=== PATIENT | male | born 1945 | race Caucasian/White ===

== ENCOUNTER 2020-06-02 07:57 | Outpatient (REF) | payer MEDICARE, SELFPAY | END 2020-06-02 07:58 | disposition home or self-care (01) | LOC: HO.LAB 07:57 | PROVIDERS: Visit Provider Internal Medicine | DX: Z20.828 Contact with and (suspected) exposure to other viral communicable diseases (principal) | CPT/HCPCS: C9803; U0003 ==

== ENCOUNTER 2020-06-20 08:38 | Outpatient (REF) | payer MEDICARE, SELFPAY | END 2020-06-20 08:39 | disposition home or self-care (01) | LOC: HO.LAB 08:38 | PROVIDERS: Visit Provider Internal Medicine | DX: Z20.828 Contact with and (suspected) exposure to other viral communicable diseases (principal) | CPT/HCPCS: C9803; U0003 ==

== ENCOUNTER 2020-09-25 08:25 | Outpatient (REF) | payer MEDICARE, SELFPAY | END 2020-09-25 08:26 | disposition home or self-care (01) | LOC: HO.LAB 08:25 | PROVIDERS: Visit Provider Internal Medicine | DX: Z20.822 Contact with and (suspected) exposure to COVID-19 (principal) | CPT/HCPCS: 36415; C9803; U0003; U0005 ==

== ENCOUNTER 2021-06-20 08:26 | Outpatient (REF) | payer MEDICARE, SELFPAY | END 2021-06-20 08:27 | disposition home or self-care (01) | LOC: HO.LAB 08:26 | PROVIDERS: Visit Provider Internal Medicine | DX: Z20.822 Contact with and (suspected) exposure to COVID-19 (principal) | CPT/HCPCS: C9803; U0003; U0005 ==

== ENCOUNTER 2024-08-18 08:16 | Outpatient (REF) | payer MEDICARE, SELFPAY ==
[2024-08-18 12:08] LABS: Alanine Aminotransferase 12 U/L (0-40); Albumin Level 4.1 g/dL (3.5-5.0); Alkaline Phosphatase 63 U/L (39-117); Anion Gap 10 (12-20); Aspartate Amino Transferase 26 U/L (5-37); Bilirubin Total 0.9 mg/dL (0.0-1.0); Blood Urea Nitrogen 15 mg/dL (9-16); Calcium 9.5 mg/dL (8.4-10.2); Carbon Dioxide 26 mmol/L (22-29); Chloride 105 mmol/L (96-108); Cholesterol 183 mg/dL (<200); Estimated Glomerular Filt Rate 59; Glucose Random 94 mg/dL (60-115); HDL Cholesterol 52 mg/dL (>40); LDL Cholesterol Calculated 113 mg/dL (<100); Potassium 3.3 mmol/L (3.3-5.1); Sodium 138 mmol/L (135-145); Total Protein 7.8 g/dL (6.5-8.0); Triglycerides 93 mg/dL (<150)
[2024-08-18 12:45] LABS: Creatinine Urine 101.33 mg/dL; Microalbum/Creatinine Ratio Ur 88.8 ug/mg cr (<30)
== END 2024-08-18 08:17 | disposition home or self-care (01) ==
LOC: HO.HHCL 08:16
PROVIDERS: Visit Provider Nurse Practitioner
DX: I10 Essential (primary) hypertension (principal)
CPT/HCPCS: 36415; 80053; 80061; 82043; 82570

== ENCOUNTER 2025-02-14 10:04 | Emergency (ER) | payer MEDICARE, SELFPAY ==
[2025-02-14 10:34] VITALS: BP 156/91; PULSE 57; RESP 16; TEMP 36.1; O2SAT 99; BMI 21.8
[2025-02-14 10:49] LABS: MANUAL DIFF FLAG NO
[2025-02-14 10:51] LABS: Hematocrit 37.0 % (42.0-52.0); Hemoglobin 12.2 g/dl (14.0-18.0); Imm Gran Abs Auto 0.02 X10*3/uL (0.00-0.03); Imm Gran Pct Auto 0.3 % (0.0-0.4); Lymphocytes Absolute Auto 1.5 X10*3/uL (1.2-4.9); Mean Corpuscular HGB Conc 33.0 g/dl (31.0-36.0); Mean Corpuscular Hemoglobin 29.8 pg (27.0-33.0); Mean Corpuscular Volume 90.2 fL (80.0-98.0); NRBC Abs Auto 0.000 X10*3/uL (0.0-0.012); NRBC Pct Auto 0.0 /100WBC (0.0-0.2); Platelet Count 265 X10*3/uL (160-400); Red Blood Count 4.10 X10*6/uL (4.60-5.80); White Blood Count 8.0 X10*3/uL (4.8-10.8)
[2025-02-14 11:06] LABS: Anion Gap 9 (12-20); Blood Urea Nitrogen 15 mg/dL (9-16); Calcium 9.2 mg/dL (8.4-10.2); Carbon Dioxide 29 mmol/L (22-29); Chloride 107 mmol/L (96-108); Creatinine Clr Calc Pharmacy 39.7; Estimated Glomerular Filt Rate 56; Potassium 4.0 mmol/L (3.3-5.1); Sodium 141 mmol/L (135-145)
--- NOTE | 2025-02-14 13:55 | ED.ABDPAIN ---
HPI - Abdominal Pain General Chief Complaint: Abdominal Pain Stated Complaint: l side pain Time Seen by Provider: 02/14/25 13:47 Source: patient Mode of arrival: ambulatory Limitations: no limitations History of Present Illness ED Provider: HPI narrative: 80-year-old male, who is very active, works full-time at a farm, presenting with new onset of bulging in the right inguinal area, he does quite a bit of heavy lifting at work, has had no fevers or chills hematuria no constipation, obstipation, testicular pain. Related Data Allergies Allergy/AdvReac Type Severity Reaction Status Date / Time No Known Allergies Allergy Verified 02/14/25 10:36 Review of Systems Constitutional: Reports as per HPI Physical Exam ED Vital Signs: Vital Signs - 24 hr 02/14/25 10:34 Temperature 97 F Pulse Rate 57 Respiratory Rate 16 Blood Pressure 156/91 H Pulse Oximetry 99 Oxygen Delivery Method Room Air BMI result Body Mass Index 21.8 Const Other: Gen: ?Overall well-appearing patient CV: RRR, no obvious murmurs appreciated Resp: ?No wheezing rales rhonchi no stridor moving air well Abd: ?Bowel sounds are present, right inguinal hernia, it was easily reduced at bedside MSK: FROM, strength 5/5 all extremities Skin: Warm, dry, intact, Neuro: ?Alert and oriented x3, moving upper and lower extremities symmetrically, no obvious facial asymmetry noted Medical Decision Making Medical Decision Making [facility] Narrative: See my differential as below, patient presented with a rectal inguinal hernia on the right side, it is reducible, I contacted general surgeon just to make sure patient is able to be seen on outpatient basis, otherwise see my discharge instructions Differential Diagnosis Differential Diagnoses: The differential diagnosis associated with the presentation includes (Incarcerated hernia, strangulated hernia, testicular torsion, SBO) Consult Healthcare Provider Management of the patient was discussed with: Demolition Hammer Operator (DR. Palomares from gen. surgery) Lab Data [facility] Lab Attestation statement: I reviewed the patient's lab results. 02/14/25 10:44 02/14/25 10:44 Labs: Lab Results 02/14/25 Range/Units 10:44 WBC 8.0 (4.8-10.8) X10*3/uL RBC 4.10 L (4.60-5.80) X10*6/uL Hgb 12.2 L (14.0-18.0) g/dl Hct 37.0 L (42.0-52.0) % MCV 90.2 (80.0-98.0) fL MCH 29.8 (27.0-33.0) pg MCHC 33.0 (31.0-36.0) g/dl RDW 12.6 (11.0-16.0) % Plt Count 265 (160-400) X10*3/uL MPV 10.6 (9.4-12.4) fL Immature Gran % (Auto) 0.3 (0.0-0.4) % Neut % (Auto) 71.4 (45-73) % Lymph % (Auto) 18.5 L (20-40) % [place] % (Auto) 8.6 (2-11) % Eos % (Auto) 0.6 (0-4) % Baso % (Auto) 0.6 (0-2) % Lymph # (Auto) 1.5 (1.2-4.9) X10*3/uL [place] # (Auto) 0.7 (0.1-1.2) X10*3/uL Eos # (Auto) 0.1 (0.0-0.4) X10*3/uL Baso # (Auto) 0.1 (0.0-0.2) X10*3/uL Abs Immat Gran (auto) 0.02 (0.00-0.03) X10*3/uL Absolute Neuts (auto) 5.7 (2.0-8.3) x10*3/uL Absolute Nucleated RBC 0.000 (0.0-0.012) X10*3/uL Nucleated RBC % (auto) 0.0 (0.0-0.2) /100WBC Sodium 141 (135-145) mmol/L Potassium 4.0 D (3.3-5.1) mmol/L Chloride 107 (96-108) mmol/L Carbon Dioxide 29 (22-29) mmol/L Anion Gap 9 L (12-20) BUN 15 (9-16) mg/dL Creatinine 1.24 (0.5-1.4) mg/dL Estim Creat Clear Calc 39.7 Estimated GFR 56 Random Glucose 100 (60-115) mg/dL Calcium 9.2 (8.4-10.2) mg/dL Tests considered The following testing was considered but not selected: CT abdomen and pelvis with oral contrast to evaluate for SBO Prescription Management I considered prescription management with: Pain Medication Discharge Plan Discharge Clinical Impression: Direct inguinal hernia of right side Patient Disposition: Home, Self-Care Instructions: Inguinal Hernia (ED) Additional Instructions: You have evidence of inguinal hernia on the right side, it is easy or reducible, as discussed you will likely require elective surgery for this, if area comes out and your unable to easily reduce it come back to the ER, this really no other treatment for this at this time, to reduce the hernia or a down, put her hands on a lump and gently push the hernia in, it will likely come out and stay out for quite prolonged times and if it is not bothering you there was not much to do about diet, otherwise you can take Tylenol for pain and ice the area, but otherwise I recommend against heavy lifting until you get it fixed I am providing you with a number to call Dr. Horn general surgeon to establish follow up Referrals: Primo Horn MD [Physician, General Surgery] - 2 weeks Clinical Impression: Direct inguinal hernia of right side Print Language: Indonesian
[2025-02-14 14:00] VITALS: BP 183/78; PULSE 56; RESP 18; O2SAT 98
[2025-02-14 14:16] VITALS: BP 183/78; PULSE 56; RESP 18; TEMP 36.6; O2SAT 98
--- OUTSIDE RECORDS SUMMARY | 2025-02-14 14:56 | XMS_ITS | Encounter Summary ---
Author Organization [employer] Address [address] [place] [address] Care Team Providers Care City Council Member Name Role Phone AngusKathleen METAL FENCE ERECTOR Primary Care Provider [phone] Kaitlin An NP Primary Care Provider [phone] Encounter Details Date Type Department Care Team (Late st Contact Info) Description 11/12/2022 Orders Only [facility] [address] [place] [address] Serene Lehman LPN Social History Tobacco Use Types Packs/Day Years Used Date Smoking Tobacco: Never Assessed Sex and Gender Information Value Date Recorded Sex Assigned at Male 05/20/2022 10:19 AM EDT Legal Sex Male 10:19 AM EDT Gender Identity Male 05/20/2022 10:19 AM EDT Sexual Orientation Straight 05/20/2022 10 :19 AM EDT documented as of this encounter Plan of Treatment Upcoming Encounters Date Type Department Care Team (Late st Contact Info) Description 03/18/2025 10:30 AM EDT Office Visit [facility] [address] [place] [address] TarSilvina walker, OD [address] [place] [address] documented as of this encounter Visit Diagnoses Not on filedocumented in this encounter Care Teams City Council Member Relationship Specialty Start Date End Date Kathleen Greco FNP [address] [place] [address] PCP - General Family Medicine 03/14/22 08/26/23 Kaitlin An NP [address] [place] [address] PCP - General Family Medicine 08/27/23 documented as of this encounter
== END 2025-02-14 14:16 | disposition home or self-care (01) ==
LOC: HO.ED 14:12
PROVIDERS: Emergency Provider Emergency Medicine
DX: K40.90 Unilateral inguinal hernia, without obstruction or gangrene, not specified as recurrent (principal); I10 Essential (primary) hypertension; E78.5 Hyperlipidemia, unspecified
CPT/HCPCS: 36415; 80048; 85025; 99283; 99284

== ENCOUNTER 2025-02-18 15:29 | Outpatient (AMB) | payer MEDICARE, SELFPAY ==
--- OUTSIDE RECORDS SUMMARY | 2025-02-18 15:31 | XMS_ITS | Encounter Summary ---
Author Organization [employer] Address [address] [place] [address] Care Team Providers Care Wrapper Layer Name Role Phone AngusKathleen DUCK OPERATOR Primary Care Provider [phone] Kaitlin An NP Primary Care Provider [phone] Encounter Details Date Type Department Care Team (Late st Contact Info) Description 11/12/2022 Orders Only [facility] [address] [place] [address] Serene Lehman LPN Social History Tobacco Use [...] Description 03/18/2025 10:30 AM EDT Office Visit [facility] [address] [place] [address] TarSilvina walker, OD [address] [place] [address] documented as of this encounter Visit Diagnoses Not on filedocumented in this encounter Care Teams Wrapper Layer Relationship Specialty Start Date End Date Kathleen Greco FNP [address] [place] [address] PCP - General Family Medicine 03/14/22 08/26/23 Kaitlin An NP [address] [place] [address] PCP - General Family Medicine 08/27/23 documented as of this encounter
--- NOTE | 2025-02-18 15:33 | MHC.PC.OV ---
Vital Signs 02/18/25 15:41 02/18/25 16:35 Height 5 ft 4.57 in Weight 136 lb BMI 22.9 BP 184/82 H 159/72 H Blood Pressure Location Lt brachial Rt brachial Position Sitting Respiration 14 Pulse 54 Pulse Source Pulse Oximeter Temp 98.2 F Temp Source Temporal Artery Scan Pulse Oximetry (%) 98 Oxygen Delivery Method Room Air Intake Visit Reasons: Establish Care Court Assistant Required: No Accompanied by: Self / Same As Patient Allergies No Known Allergies Allergy (Verified 02/18/25 16:36) Medication List - Last Reconciled 02/18/25 by Rashmi Unger PA-C lisinopril 20 mg PO DAILY Tobacco use date assessed: 02/18/25 Fall risk assessment: No Falls in past year Last assessed Fall Risk: 02/18/25 Dental Screening Dental Screen Date: 02/18/25 Did you have a dental visit in the last 12 months?: No Did you have a dental problem in the last 6 months where you did not have access to dental care?: No HPI Establish Care HPI Details The patient is an 80-year-old male presenting for a new patient appointment with right inguinal hernia pain. The hemorrhoid began approximately one week ago and is associated with pain, particularly when lifting heavy objects. The patient has not had a primary care physician and was referred to the current provider after visiting the emergency room for inguinal pain. The inguinal pain was noted on February 14, coinciding with lifting heavy items, and led to an emergency room visit. During this visit, blood tests indicated mild anemia, normal kidney function, and elevated LDL cholesterol at 113 mg/dL. The patient reports a history of elevated blood pressure, which tends to rise during hospital visits. He has not seen a doctor for approximately three years and denies chest pain or leg swelling. Social History - Family status: Has seven children [facility] Medical History (Updated 02/18/25 @ 16:41 by Rashmi Unger PA-C) Hyperlipidemia LDL goal <100 Hypertension Right inguinal hernia Family History Father No problems noted. Mother No problems noted. Social History Housing: Apartment Alcohol intake: current Alcohol intake frequency: does not drink Patient Tobacco Use Status: Never used Tobacco service: No Current occupational status: retired Cognitive needs: No Hearing needs: No Vision needs: Yes (reading glasses) Questionnaire PHQ-9 Over the last 2 weeks, how often have you been bothered by any of the following problems? 1. Little interest or pleasure in doing things: not at all 2. Feeling down, depressed, or hopeless: not at all 3. Trouble falling or staying asleep, or sleeping too much: not at all 4. Feeling tired or having little energy: not at all 5. Poor appetite or overeating: not at all 6. Feeling bad about yourself - or that you are a failure or have let yourself or your family down: not at all 7. Trouble concentrating on things, such as reading the newspaper or watching television: not at all 8. Moving or speaking so slowly that other people could have noticed. Or the opposite - being so fidgety or restless that you have been moving around a lot more than usual: not at all 9. Thoughts that you would be better off or of hurting yourself in some way: not at all Total score: 0 Depression Screening Interpretation: Negative Depression Screening Done: Yes 33262 - PHQ-9 Billing: Yes Source: Developed by Drs. Wilfrid Mullen, Karen Ugalde, Brian Blue and colleagues, with an educational cathleen from [employer]. Thrive Questionnaire Date Thrive assessed: 02/18/25 I am a: Patient What is your living situation today?: I have a steady place to live Within the past 12 months, did the food you bought not last and you didn't have the money to get more?: Never true Within the past 12 months, did you worry whether your food would run out before you got money to buy more?: Never true Do you have trouble paying for medicines?: No Do you have trouble getting transportation to medical appointments?: No Do you have trouble paying your heating and electricity bill?: No Do you have trouble taking care of your child, family member or friend?: No Do you have trouble with day-to-day activities such as bathing, preparing meals, shopping, managing finances, etc.?: No Are you currently unemployed and looking for a job?: No Are you interested in more education?: No Please select the resources that you would like help with: None THRIVE Score: 0 AUDIT C Alcohol Use Questionnaire (AUDIT-C) 1. How often do you have a drink containing alcohol?: Never 3. How often do you have six or more drinks on one occasion?: Never Total Score: 0 Score Reviewed/Action Taken: No DARIELA-7 AMB Questionnaire DARIELA-7 Date DARIELA - 7 assessed: 02/18/25 Feeling nervous, anxious, or on edge: 0 = Not at all Not being able to stop or control worryin = Not at all Worrying too much about different things: 0 = Not at all Trouble relaxin = Not at all Being so restless that it is hard to sit still: 0 = Not at all Becoming easily annoyed or irritable: 0 = Not at all Feeling afraid as if something awful might happen: 0 = Not at all Total DARIELA-7 score (0-4 normal; 5-9 mild; 10-14 moderate; 15-21 severe): 0 Source: Developed by Drs. Wilfrid Mullen, Karen Ugalde, Brian Blue and colleagues, with an educational cathleen from [employer]. DARIELA-7 Assessment Billing DARIELA-7 Assessment Tool: DARIELA-7 Assessment 23635 Review of Systems Const Details: - Cardiovascular: Denies chest pain, denies leg swelling - Gastrointestinal: Reports hemorrhoid with pain All systems reviewed & are unremarkable except as noted in HPI and below Physical exam (Primary Care) Vital Signs: Last Vital Signs Temp 98.2 F 02/18/25 15:41 Pulse 54 02/18/25 15:41 Resp 14 02/18/25 15:41 BP 184/82 H 02/18/25 15:41 Pulse Ox 98 02/18/25 15:41 Oxygen Delivery Method Room Air 02/18/25 15:41 Care Plan Goal for BP management: <140/90 patient to continue lisinopril 20 mg daily and keep a blood pressure diary return in 1 month with blood pressure diary and blood pressure cuff for re-evaluation BMI result Body Mass Index 22.9 Normal BMI Tobacco/Smoking Status: Tobacco use Status Tobacco use date assessed 02/18/25 02/18/25 15:38 Patient Tobacco Use Status Never used Tobacco 02/18/25 15:49 PHQ-9: PHQ-9 Score PHQ-9: Total score 0 02/18/25 15:49 Depression Screening Interpretation: Negative Thrive Assessment: Date of Thrive Assessment Date Thrive assessed 02/18/25 02/18/25 15:38 Const Other: Appearance: Alert. Oriented X3. No acute distress. Head: Normal external exam. Normocephalic. Atraumatic. Eyes: Pupils are equal, round, and reactive to light. Extraocular movements intact. Conjunctiva and sclera normal. Eyelids normal. Throat: Pharynx normal. Uvula midline. Moist mucous membranes. Neck: Normal inspection. Neck supple. Full range of motion. Cardiovascular: Normal heart rate and rhythm. Heart sound normal. No murmurs noted. Pulses normal throughout. Respiratory: No respiratory distress. Painless inspiration. Breath sounds normal. No wheezes/rales/rhonchi noted. Chest nontender. No accessory muscle usage noted or decreased air movement noted. Abdomen: Soft and nontender. No distention noted. No organomegaly noted. Large right inguinal hernia noted/bulge. Easily reducible. Not consistent with incarcerated hernia. Back: Full range of motion noted. Skin: Skin warm and dry. Normal skin color. Normal skin turgor. No rashes/lesions/lacerations noted. Extremities: Extremities exhibit normal range of motion. Neuro: Oriented X 3. No motor deficit. No sensory deficit. Reflexes normal. Results Reviewed Results Reviewed: - Labs: Mild anemia, normal kidney function, elevated LDL cholesterol at 113 mg/dL Coding Level of Care Code New Pt Level 4 (65355) Complex EM visit Add On G2211 Diagnoses Hypertension I10 Right inguinal hernia K40.90 Hyperlipidemia LDL goal <100 E78.5 Additional Codes PHQ-9 - 31323 - PHQ-9 Billing: Yes ([id number]) DARIELA-7 Assessment Billing - DARIELA-7 Assessment Tool: DARIELA-7 Assessment 16065 ([id number]) Assessment & Plan Assessment & Plan (1) Hypertension: Code(s): I10 - Essential (primary) hypertension Category: Medical Plan: The patient's blood pressure will be monitored, and lifestyle modifications were discussed. (2) Right inguinal hernia: Code(s): K40.90 - Unilateral inguinal hernia, without obstruction or gangrene, not specified as recurrent Category: Medical Plan: The inguinal pain is suspected to be related to lifting heavy objects. Further evaluation by a surgeon is planned. Referral to general surgeon place. Abdominal binder recommended to patient to buy. (3) Hyperlipidemia LDL goal <100: Code(s): E78.5 - Hyperlipidemia, unspecified Category: Medical Plan: Patient was offered cholesterol-lowering medication although patient declined he will improve his diet and exercise regimen and we will reassess in 6-12 months. Plan Plan Patient was informed and verbally consented to the use of an ambient scribe for clinic note documentation during this visit. 1. Inguinal Pain The inguinal pain is suspected to be related to lifting heavy objects. Further evaluation by a surgeon is planned. 2. Elevated Blood Pressure The patient's blood pressure will be monitored, and lifestyle modifications were discussed. 3. Elevated Ldl Cholesterol The patient will undergo further blood tests to monitor cholesterol levels and assess for other conditions such as prostate cancer, thyroid function, vitamin D, and vitamin B12 levels. I discussed with the patient the need for surgical evaluation for the inguinal hernia and the potential benefits of using an abdominal binder to alleviate symptoms. We also talked about the importance of monitoring blood pressure and cholesterol levels, and I recommended further blood tests to check for prostate cancer, thyroid function, vitamin D, and vitamin B12 levels. Orders: Orders Magnesium Today Z00.00 - Encounter for general adult medical examination without abnormal findings Vitamin B12 and Folate Today Z00.00 - Encounter for general adult medical examination without abnormal findings Hemoglobin A1c Today Z00.00 - Encounter for general adult medical examination without abnormal findings PSA,Total (Free>4and<10) Today Z00.00 - Encounter for general adult medical examination without abnormal findings TSH reflex Free T4 Today Z00.00 - Encounter for general adult medical examination without abnormal findings Vitamin D 25-OH Total Today Z00.00 - Encounter for general adult medical examination without abnormal findings Referrals Gastroenterology Referral K40.90 - Unilateral inguinal hernia, without obstruction or gangrene, not specified as recurrent Patient Instructions: - Follow up with the surgeon as scheduled for right inguinal hernia evaluation. - Consider purchasing an abdominal binder to help manage symptoms. - Monitor blood pressure regularly and report any significant changes. - Complete the recommended blood tests for cholesterol, prostate cancer, thyroid function, vitamin D, and vitamin B12 levels.
[2025-02-18 15:41] VITALS: BP 184/82; PULSE 54; RESP 14; TEMP 36.8; O2SAT 98; BMI 22.9
[2025-02-18 16:35] VITALS: BP 159/72
== END 2025-02-18 16:09 | disposition home or self-care (01) ==
LOC: HO.HMCSH 15:29
PROVIDERS: PCP Physician Assistant Medical; Visit Provider Physician Assistant Medical
DX: I10 Essential (primary) hypertension (principal); K40.90 Unilateral inguinal hernia, without obstruction or gangrene, not specified as recurrent; E78.5 Hyperlipidemia, unspecified

== ENCOUNTER → 2025-02-18 15:29 | Outpatient (BNVA) | payer MEDICARE, SELFPAY | PROVIDERS: PCP Physician Assistant Medical; Visit Provider Physician Assistant Medical | DX: I10 Essential (primary) hypertension (principal); K40.90 Unilateral inguinal hernia, without obstruction or gangrene, not specified as recurrent; E78.5 Hyperlipidemia, unspecified | CPT/HCPCS: 96127; 99202 ==

== ENCOUNTER 2025-03-25 11:50 | Outpatient (AMB) | payer MEDICARE, SELFPAY ==
--- NOTE | 2025-03-25 11:51 | MHC.PC.OV ---
Vital Signs 03/25/25 11:53 03/25/25 13:06 Height 5 ft 4.57 in Weight 137 lb BMI 23.1 BP 154/80 H 150/71 H Blood Pressure Location Lt brachial Position Sitting Respiration 14 Pulse 72 Pulse Source Pulse Oximeter Temp 98.1 F Temp Source Temporal Artery Scan Pulse Oximetry (%) 99 Oxygen Delivery Method Room Air Intake Visit Reasons: 1 month f/u Manager Emergency Department Required: No Accompanied by: Daughter Allergies No Known Allergies Allergy (Verified 03/25/25 13:06) Medication List - Last Reconciled 03/25/25 by Rashmi Unger PA-C lisinopril 40 mg PO DAILY Tobacco use date assessed: 03/25/25 Dental Screening Dental Screen Date: 02/18/25 HPI 1 month f/u HPI Details The patient is an 80-year-old male presenting for a blood pressure recheck and evaluation of a right inguinal hernia. The patient has a history of essential hypertension, currently managed with lisinopril 20 mg daily. His blood pressure has been elevated, with a current reading of 150/70 mmHg, prompting consideration of increasing the lisinopril dosage to 40 mg. The patient also has a right inguinal hernia, which is significant enough to warrant surgical evaluation. He is scheduled for a gastroenterology appointment in May, but due to the urgency, a referral to general surgery is being expedited. Social History - Employment: The patient is still working, involved in tobacco farming [facility] Medical History Hyperlipidemia LDL goal <100 Hypertension Right inguinal hernia Family History Father No problems noted. Mother No problems noted. Social History Housing: Apartment Alcohol intake: current Alcohol intake frequency: does not drink Patient Tobacco Use Status: Never used Tobacco service: No Current occupational status: retired Cognitive needs: No Hearing needs: No Vision needs: Yes (reading glasses) Questionnaire PHQ-9 Over the last 2 weeks, how often have you been bothered by any of the following problems? 1. Little interest or pleasure in doing things: not at all 2. Feeling down, depressed, or hopeless: not at all 3. Trouble falling or staying asleep, or sleeping too much: not at all 4. Feeling tired or having little energy: not at all 5. Poor appetite or overeating: not at all 6. Feeling bad about yourself - or that you are a failure or have let yourself or your family down: not at all 7. Trouble concentrating on things, such as reading the newspaper or watching television: not at all 8. Moving or speaking so slowly that other people could have noticed. Or the opposite - being so fidgety or restless that you have been moving around a lot more than usual: not at all 9. Thoughts that you would be better off or of hurting yourself in some way: not at all Total score: 0 Depression Screening Interpretation: Negative Depression Screening Done: Yes 49508 - PHQ-9 Billing: Yes Source: Developed by Drs. Wilfrid Mullen, Karen Ugalde, Brian Blue and colleagues, with an educational cathleen from [employer]. Thrive Questionnaire Date Thrive assessed: 02/18/25 I am a: Patient What is your living situation today?: I have a steady place to live Within the past 12 months, did the food you bought not last and you didn't have the money to get more?: Never true Within the past 12 months, did you worry whether your food would run out before you got money to buy more?: Never true Do you have trouble paying for medicines?: No Do you have trouble getting transportation to medical appointments?: No Do you have trouble paying your heating and electricity bill?: No Do you have trouble taking care of your child, family member or friend?: No Do you have trouble with day-to-day activities such as bathing, preparing meals, shopping, managing finances, etc.?: No Are you currently unemployed and looking for a job?: No Are you interested in more education?: No Please select the resources that you would like help with: None THRIVE Score: 0 AUDIT C Alcohol Use Questionnaire (AUDIT-C) 1. How often do you have a drink containing alcohol?: Never 3. How often do you have six or more drinks on one occasion?: Never Total Score: 0 Score Reviewed/Action Taken: No DARIELA-7 AMB Questionnaire DARIELA-7 Date DARIELA - 7 assessed: 02/18/25 Feeling nervous, anxious, or on edge: 0 = Not at all Not being able to stop or control worryin = Not at all Worrying too much about different things: 0 = Not at all Trouble relaxin = Not at all Being so restless that it is hard to sit still: 0 = Not at all Becoming easily annoyed or irritable: 0 = Not at all Feeling afraid as if something awful might happen: 0 = Not at all Total DARIELA-7 score (0-4 normal; 5-9 mild; 10-14 moderate; 15-21 severe): 0 Source: Developed by Drs. Wilfrid Mullen, Karen Ugalde, Brian Blue and colleagues, with an educational cathleen from [employer]. DARIELA-7 Assessment Billing DARIELA-7 Assessment Tool: DARIELA-7 Assessment 13783 Review of Systems Const Details: - Cardiovascular: Reports elevated blood pressure. Denies cough associated with lisinopril use. All systems reviewed & are unremarkable except as noted in HPI and below Physical exam (Primary Care) Vital Signs: Last Vital Signs Temp 98.1 F 03/25/25 11:53 Pulse 72 03/25/25 11:53 Resp 14 03/25/25 11:53 BP 154/80 H 03/25/25 11:53 Pulse Ox 99 03/25/25 11:53 Oxygen Delivery Method Room Air 03/25/25 11:53 Care Plan Goal for BP management: <140/90 lisinopril 20 mg will be increased to 40 mg patient will return in 1 month BMI result Body Mass Index 23.1 Normal BMI Tobacco/Smoking Status: Tobacco use Status Tobacco use date assessed 03/25/25 03/25/25 11:56 Patient Tobacco Use Status Never used Tobacco 03/25/25 11:56 PHQ-9: PHQ-9 Score PHQ-9: Total score 0 03/25/25 11:56 Depression Screening Interpretation: Negative Thrive Assessment: Date of Thrive Assessment Date Thrive assessed 02/18/25 03/25/25 11:56 Const Other: Appearance: Alert. Oriented X3. No acute distress. Head: Normal external exam. Normocephalic. Atraumatic. Eyes: Pupils are equal, round, and reactive to light. Extraocular movements intact. Conjunctiva and sclera normal. Eyelids normal. Throat: Pharynx normal. Uvula midline. Moist mucous membranes. Neck: Normal inspection. Neck supple. Full range of motion. Cardiovascular: Blood pressure is 150/70. Normal heart rate and rhythm. Heart sound normal. No murmurs noted. Pulses normal throughout. Respiratory: No respiratory distress. Painless inspiration. Breath sounds normal. No wheezes/rales/rhonchi noted. Chest nontender. No accessory muscle usage noted or decreased air movement noted. Back: Full range of motion noted. Skin: Skin warm and dry. Normal skin color. Normal skin turgor. No rashes/lesions/lacerations noted. Extremities: No lower extremity edema. Extremities exhibit normal range of motion. Neuro: Oriented X 3. No motor deficit. No sensory deficit. Reflexes normal. Coding Level of Care Code Est Pt Level 4 (40897) Complex EM visit Add On G2211 Diagnoses Hypertension I10 Right inguinal hernia K40.90 Additional Codes DARIELA-7 Assessment Billing - DARIELA-7 Assessment Tool: DARIELA-7 Assessment 73492 ([id number]) PHQ-9 - 99966 - PHQ-9 Billing: Yes ([id number]) Assessment & Plan Assessment & Plan (1) Hypertension: Code(s): I10 - Essential (primary) hypertension Category: Medical Plan: The patient's blood pressure remains elevated at 150/70 mmHg despite current management with lisinopril 20 mg daily. The plan is to increase the lisinopril dosage to 40 mg daily and reassess in one month. (2) Right inguinal hernia: Code(s): K40.90 - Unilateral inguinal hernia, without obstruction or gangrene, not specified as recurrent Category: Medical Plan: The patient has a significant right inguinal hernia requiring surgical evaluation. A referral to general surgery is being expedited to address the hernia promptly, bypassing the longer wait for a gastroenterology appointment. Plan Plan Patient was informed and verbally consented to the use of an ambient scribe for clinic note documentation during this visit. 1. Essential Hypertension The patient's blood pressure remains elevated at 150/70 mmHg despite current management with lisinopril 20 mg daily. The plan is to increase the lisinopril dosage to 40 mg daily and reassess in one month. 2. Right Inguinal Hernia The patient has a significant right inguinal hernia requiring surgical evaluation. A referral to general surgery is being expedited to address the hernia promptly, bypassing the longer wait for a gastroenterology appointment. During the visit, we discussed the patient's elevated blood pressure and the need to increase lisinopril to 40 mg daily. We also addressed the right inguinal hernia, deciding to expedite a referral to general surgery for evaluation and potential intervention. Orders: Referrals General Surgery Referral K40.90 - Unilateral inguinal hernia, without obstruction or gangrene, not specified as recurrent Medications: Changed From lisinopril 20 mg PO DAILY To lisinopril 40 mg PO DAILY 30 tabs 0RF Patient Instructions: - Take lisinopril 40 mg daily as prescribed. - Follow up with general surgery for hernia evaluation. - Return for a follow-up appointment in one month to reassess blood pressure.
[2025-03-25 11:53] VITALS: BP 154/80; PULSE 72; RESP 14; TEMP 36.7; O2SAT 99; BMI 23.1
--- OUTSIDE RECORDS SUMMARY | 2025-03-25 12:38 | XMS_ITS | Clinical Summary ---
Author Organization [employer] Address [address] [facility] [address] [place] [address] Care Team Providers Care Purchasing Supervisor Name Role Phone Kaitlin An LUKE Primary Care Provider [phone] Allergies No known active allergies Medications aspirin (Aspirin Low Dose) 81 MG chewable tablet CHEW AND SWALLOW ONE TABLET BY MOUTH EVERY DAY 30 tablet 4 Active Additional Information Patient not taking.Reported on 08/06/2024 Blood Pressure kitIndications:E ssential hypertension 1 each 2 times daily. 1 kit 5 08/13/19 26 Active lisinopril 20 MG tabletIndication s:Essential hypertension TAKE ONE TABLET BY MOUTH EVERY DAY 90 tablet 1 5 Active Active Problems Problem Noted Date Diagnosed Date Tubular adenoma of colon 03/31/2019 Impaired fasting glucose 03/10/2019 Essential hypertension 05/21/2018 Excessive cerumen in ear canal 05/21/2018 History of appendectomy 05/21/2018 Immunizations Immunization Administration Dates Next Due Influenza High-dose Quadriva lent Preservative Free 07/19/2021 Influenza injectable quadriv alent preservative free 04/30/2019 Influenza, High Dose Seasona l, Preservative Free 08/13/2024,05/21/2018 Influenza, IIV3, injectable 03/03/2017, 6 Moderna Covid-19 Vaccine 12+ 11/08/2021, 05/31/2021,09/28/2020,09/01 Pneumococcal Conjugate PCV 13 05/21/2018 Pneumococcal Conjugate PCV 20 08/13/2024 Pneumococcal Polysaccharide PPSV23 08/11/2019, RSV Bivalent 08/18/2024 TD (adult), 2 Lf tetanus tox oid, preservative free, adsorbed 09/29/2010 Tdap 11/08/2021 Tetanus Toxoid, Unspecified 06/06/2006 Zoster, Recombinant 08/18/2024 Family History Medical History Relation Name Comments No Known Problems Father at ag e 106 due to natural causes Stomach cancer Mother Stomach cancer Sister Relation Name Status Comments Father Mother Sister Alive Social History Tobacco Use Types Packs/Day Years Used Date Smoking Tobacco: Never Smokeless Tobacco: Never Tobacco Cessation:Counseling Given: Not Answered Alcohol Use Standard Drinks/Week Comments Yes 2 (1 standard drink = 0.6 oz pur e alcohol) socially 15 cans per month Alcohol Answer Date Recorded How often do you have a drink containing alcohol ? 1 08/13/2024 How many drinks containing a lcohol do you have on a typical day when you are drinking? 0 08/13/2024 How often do you have six or more drinks on one occasion? 0 08/13/2024 Depression Answer Date Recorded Patient Health Questionnaire-9 Score 0 08/13/2024 Patient Health Questionnaire-9 Score 0 08/13/2024 Last PHQ-9: Questionnaire Data Not on file 0 08/13/2024 Housing Stability Answer Date Recorded What is your housing situation today? I have miguel angelcamelia boyce 08/13/[address] you li ve. Do you have problems with any of the following? None of the above 08/13/2024 Food Insecurity Answer Date Recorded Within the past 12 months, y ou worried that your food would run out before you got money to buy more: Never True 08/13/2024 Within the past 12 months,th e food you bought just didn't last and you didn't have enough money to get more: Never True Transportation Answer Date Recorded In the past 12 months, has l ack of transportation kept you from medical appts, meetings, work or from getting things needed for daily living? No 08/13/2024 Utilities Answer Date Recorded In the past 12 months, has t he electric, gas, oil or water company threatened to shut off services in your home? No 08/13/2024 Depression Answer Date Recorded Patient Health Questionnaire-2 Score 0 08/13/2024 Internet Access Answer Date Recorded Internet Access Q1 No 08/13/2024 Internet Access Q2 I do not want or need it 07/22 Sex and Gender Information Value Date Recorded Sex Assigned at Male 05/20/2022 10:19 AM EDT Legal Sex Male 10:19 AM EDT Gender Identity Male 05/20/2022 10:19 AM EDT Sexual Orientation Straight 05/20/2022 10 :19 AM EDT Last Filed Vital Signs Vital Sign Reading Time Taken Comments Blood Pressure 162/88 08/18/2024 11:47 AM EST Pulse 73 08/18/2024 11:46 AM EST Temperature 37.2 C (98.9 F) 08/13/2024 11:05 AM EST Respiratory Rate 18 08/18/2024 11:46 AM EST Oxygen Saturation 96% 08/18/2024 11:46 AM EST Room air Inhaled Oxygen Concentration - - Weight 68.8 kg (151 lb 9.6 oz) 08/18/2024 11:46 AM EST Height 170.2 cm (5' 7 ) 08/13/2024 11:05 AM EST Body Mass Index 23.74 08/13/2024 11:05 AM EST Plan of Treatment Upcoming Encounters Date Type Department Care Team (Late st Contact Info) Description 07/25/2025 3:00 PM EST Office Visit [facility] [address] [place], [place] [id number] Silvina Muller, OD [address] [place] [address] Health Maintenance Due Date Last Done Comments Zoster Vaccines (2 of 2) 10/13/2024 08/18/2024 COVID-19 Vaccine ( season) 2025 11/08/2021, 05/31/2021, 09/28/2020, Additional history exists Influenza Vaccine (#1) 2025 , 07/19/2021, 04/30/2019, Additional history exists Alcohol/Substance Use Screening 08/13/2025 08/13/2024 Depression Screening 08/13/2025 08/13/2024, 08/13/19 SDOH Screening 08/13/2025 08/13/2024 Tobacco Screening 08/18/2025 08/18/2024 Lipid Panel 08/18/2029 08/18/2024 DTaP/Tdap/Td Vaccines (2 - Td or Tdap) 11/09/2031 11/08/2021, 09/29/2010, 06/06/2006 Pneumococcal Vaccine: 50+ Years Completed 08/13/2024, 08/11/2019, 05/21/2018, Additional history exists RSV Patients and Patients Aged 60 years or older Completed 08/18/2024 HIB Vaccines Aged Out No longer eligi ble based on patient's age to complete this topic HPV Vaccines Aged Out No longer eligi ble based on patient's age to complete this topic Hepatitis A Vaccines Aged Out No long er eligible based on patient's age to complete this topic Hepatitis B Vaccines Aged Out No long er eligible based on patient's age to complete this topic IPV Vaccines Aged Out No longer eligi ble based on patient's age to complete this topic Meningococcal B Vaccine Aged Out No l onger eligible based on patient's age to complete this topic Meningococcal Vaccine Aged Out No lore dayanna eligible based on patient's age to complete this topic RSV under 20 months Aged Out No longe r eligible based on patient's age to complete this topic Rotavirus Vaccines Aged Out No longer eligible based on patient's age to complete this topic Procedures Procedure Name Priority Date/Time Associated Diagnosis Comments LIPID PANEL, STANDARD Routine 08/18/2024 8:18 AM EST Encounter for health-related screening from Last 3 Months or Most Recently Relevant to Health Maintenance Results * (ABNORMAL) Lipid Panel, Standard (08/18/2024 8:18 AM EST) Triglycerides 93 <150 mg/dL [facility] Comment:Desirable Triglyceri de: less than 150 mg/dLBorderline High Triglyceride 150-199 mg/dLHigh Triglyceride: 200-499 mg/dLVery High Triglyceride: greater than or equal to 5OO mg/dL Cholesterol 183 <200 mg/dL [facility] Comment:Desirable Cholestero l: less than 200 mg/dLBorderline High Cholesterol: 200-239 mg/dLHigh Cholesterol: greater than 239 mg/dL LDL Cholesterol Calculated 113(H) <100 mg/dL [facility] Comment:Desirable LDL: less than 100 mg/dLNear Optimal/Above Optimal LDL: 110- 129 mg/dLBorderline High LDL: 130-159 mg/dLHigh LDL: 160-189 mg/dLVery High LDL: greater than or equal to 190 mg/dL HDL Cholesterol 52 >40 mg/dL [facility] Comment:Desirable HDL: great er than 40 mg/dL Note: This HDL assay may give artificially low results in patients with liver disease. Blood Venous blood specimen / Unknown 08/18/2024 8:18 AM EST 08/18/2024 11:25 AM EST us Kaitlin An CABLEWAY OPERATOR LAB BLOOD ORDERABLES Final Resu lt [facility] [address] [place] [address] [phone] from Last 3 Months or Most Recently Relevant to Health Maintenance Insurance [facility] DUAL COMPLETE HMO [facility] MEDICARE ADVANTAGE HMO Care Teams Purchasing Supervisor Relationship Specialty Start Date End Date Kaitlin An NP [address] [place] [address] PCP - General Family Medicine 08/27/23
--- OUTSIDE RECORDS SUMMARY | 2025-03-25 12:38 | XMS_ITS | Encounter Summary ---
Author Organization [employer] Address [address] [facility] 7t [place] [address] Care Team Providers Care Train Master Name Role Phone Kathleen Greco TREASURY MANAGER Primary Care Provider [phone] Kaitlin An NP Primary Care Provider [phone] Encounter Details Date Type Department Care Team (Late st Contact Info) Description 11/12/[address] [facility] [address] [place] [address] Serene Lehman LPN Social History Tobacco Use [...] Office Visit [facility] [address] [place] [address] TarkaSilvina, OD [address] [place] [address] documented as of this encounter Visit Diagnoses Not on filedocumented in this encounter Care Teams Train Master Relationship Specialty Start Date End Date AngusKathleen FNP [address] [place] [address] PCP - General Family Medicine 03/14/22 08/26/23 Kaitlin An NP [address] [place] [address] PCP - General Family Medicine 08/27/23 documented as of this encounter
--- OUTSIDE RECORDS SUMMARY | 2025-03-25 12:38 | XMS_ITS | Encounter Summary ---
Author Organization [email or web address] [facility] Address [address] [place] [address] [address]t [place] [address] Care Team Providers Care Security Developer Name Role Phone Kaitlin An NP Primary Care Provider [phone] Reason for Visit * Reason Comments Med Refill Encounter Details Date Type Department Care Team (Late Contact Info) Description 02/26/[address] [facility] [address] [place] [address] Kaitlin An NP [address] [place] [address] Social History Tobacco Use Types Packs/Day Years [...] Description 07/25/2025 3:00 PM EST Office Visit [facility] [address] [place] [address] TarkaSilvina, OD [address] [place] [address] documented as of this encounter Visit Diagnoses Not on filedocumented in this encounter Care Teams Security Developer Relationship Specialty Start Date End Date Kaitlin An NP [address] [place] [address] PCP - General Family Medicine 08/27/23 documented as of this encounter
--- OUTSIDE RECORDS SUMMARY | 2025-03-25 12:38 | XMS_ITS | Encounter Summary ---
Author Organization [employer] Address [address] [place] [address] [address] [place] [address] Care Team Providers Care Global Security Architect Name Role Phone Kaitlin An NP Primary Care Provider [phone] Reason for Visit * Reason Comments Med Refill Encounter Details Date Type Department Care Team (Late st Contact Info) Description 10/10/2023 Refill [facility] [address] [place] [address] [facility] [address] [place] [address] Social History Tobacco Use Types Packs/Day Years Used Date Smoking Tobacco: Never Assessed Sex and Gender Information Value Date Recorded Sex Assigned at Male 05/20/2022 10:19 AM EDT Legal Sex Male 10:19 AM EDT Gender Identity Male 05/20/2022 10:19 AM EDT Sexual Orientation Straight 05/20/2022 10 :19 AM EDT documented as of this encounter Miscellaneous Notes * Telephone Encounter - Katilin An NP - 10/10/2023 6:10 PM EDT Approving, but needs appt for additional refills. documented in this encounter Plan of Treatment Upcoming Encounters Date Type Department Care Team (Late st Contact Info) Description 07/25/2025 3:00 PM EST Office Visit [facility] [address] [place] [address] TarkaSilvina, OD [address] [place] [address] documented as of this encounter Visit Diagnoses Not on filedocumented in this encounter Care Teams Global Security Architect Relationship Specialty Start Date End Date Kaitlin An NP [address] [place] [phone] PCP - General Family Medicine 08/27/23 documented as of this encounter
--- OUTSIDE RECORDS SUMMARY | 2025-03-25 12:38 | XMS_ITS | Encounter Summary ---
Author Organization [employer] [facility] Address [address] [place] [address] [address] [place] [address] Care Team Providers Care Cottonseed Meat Presser Name Role Phone Kaitlin An NP Primary Care Provider [phone] Reason for Visit * Reason Comments Med Refill Encounter Details Date Type Department Care Team (Late Contact Info) Description 03/06/[address] [facility] [address] [place] [address] Kaitlin An NP [address] [place] [address] Social History Tobacco Use Types Packs/Day Years [...] 07/25/2025 3:00 PM EST Office Visit [facility] [address] [place] [address] TarkaSilvina, OD [address] [place] [address] documented as of this encounter Visit Diagnoses Not on filedocumented in this encounter Care Teams Cottonseed Meat Presser Relationship Specialty Start Date End Date Kaitlin An NP [address] [place] [address] PCP - General Family Medicine 08/27/23 documented as of this encounter
[2025-03-25 13:06] VITALS: BP 150/71
== END 2025-03-25 12:18 | disposition home or self-care (01) ==
LOC: HO.HMCSH 11:50
PROVIDERS: PCP Physician Assistant Medical; Visit Provider Physician Assistant Medical
DX: I10 Essential (primary) hypertension (principal); K40.90 Unilateral inguinal hernia, without obstruction or gangrene, not specified as recurrent

== ENCOUNTER → 2025-03-25 11:50 | Outpatient (BNVA) | payer MEDICARE, SELFPAY | PROVIDERS: PCP Physician Assistant Medical; Visit Provider Physician Assistant Medical | DX: I10 Essential (primary) hypertension (principal); K40.90 Unilateral inguinal hernia, without obstruction or gangrene, not specified as recurrent | CPT/HCPCS: 96127; 99212 ==